=== PATIENT | female | born 1940 | race Caucasian/White ===

== ENCOUNTER → 2016-12-13 | Day surgery (SDC) | payer OTHER ==
[~2016-12-13] VITALS: Ht 154.9 cm; Wt 78.0 kg
[~2016-12-13] MED LIST: ALEN1TAB48 PO; ALPR0.5T3 PO; AMLO5TAB2 PO; ASPI-516 CHEW; CHLORHEXIDINE GLUCONATE 2 % 1 PACK (2 CLOTHS) TOPICAL PRN; CLON0.1T PO; FAMOTIDINE 20 MG/2 ML VIAL ONE; GLYCOPYRROLATE 1 MG/5 ML SYRINGE IV PUSH ONE; INSULIN HUMAN REGULAR 1,000 UNITS/10 ML VIAL SQ PRN; KETOROLAC TROMETHAMINE 60 MG/2 ML (IM) VIAL IM ONE; LACTATED RINGER'S 1000 ML IV PRN; LEVO100T5 PO; LISI-515 PO; METOPROLOL TARTRATE 25 MG TAB PO PRN; MIDAZOLAM HCL 2 MG/2 ML VIAL ONE; NEOSTIGMINE 3 MG/3 ML SYR IV ONE; ONDANSETRON HCL 4 MG/2 ML VIAL IV PUSH ONE; POVIDONE IODINE 5% (ANTISEPSIS KIT) 4 APPLICATIONS EACH NARE PRN; PROPOFOL 200 MG/20 ML AMP IV ONE; ROCURONIUM INJ 50 MG/5 ML SYRINGE IV PUSH ONE; SODIUM CHLORID 0.9% 500 ML IV PRN; fentaNYL CITRATE 250 MCG/5 ML AMP ONE
[2016-12-13 16:20] VITALS: BP 115/67; PULSE 87; RESP 16; TEMP 98.8; O2SAT 93
--- NOTE | 2017-01-01 11:10 | PD.OP ---
Operative Report Date of Surgery: Dec 13, 2016 Preoperative Diagnosis: (1) Abdominal pain, RLQ (2) Ovarian mass, right Postoperative Diagnosis: (1) Bilateral tubo-ovarian mass (2) Abdominal pain, RLQ Procedure: Laparoscopic bilateral salpingo-oophorectomy Frozen section on biopsy peritoneal biopsy Pelvic washings Anesthesia: JOSE C Surgeon: Adriana Mata Linen Room Worker(s): Marcos Cordova Surgeon: n/a Operation and Findings: Indications: This 76 y/o had imaging showing a RLQ mass done for RLQ pain. Mass is irregular and associated with RLQ pain. Patient requests removal, and after thorough discussion she agrees to bilateral salpingo-oophorectomy. Findings: At time of surgery the patient was discovered to have complex masses involving both ovaries. There were solid and cystic components to both sides. In addition there were small excrescences noted on the peritoneal surface of the abdominal cavity. The peritoneal lesions and a potion of the left ovarian mass were excised and sent for frozen section. Findings returned benign, and we then continued with BSO. Procedure: The patient was taken to the OR and administered general anesthesia with endotracheal intubation. She was the prepped and draped in yellow fin stirrups, and a uterine manipulator was inserted into the cervix. After re- gloving, a 10 mm incision was made into the umbilicus, and the abdomen was insufflated with 3 liters of CO2. The laparoscopic trochar was inserted and port placed. Under direct visualization and using transillumination to avoid major vessels, two 5 mm ports were placed in the lower quadrants. Using a probe and grasper, the findings above were noted. After collecting pelvic washings, a biopsy instrument was used to biopsy the peritoneal lesions seen as well as a piece of the left ovary. These were sent for frozen section. The report returned benign and we proceeded with excision of the tubes and ovaries. This was done on the right by lysing some very thick as well as filmy adhesions attaching the ovary to the uterus, colon and pelvic sidewall. The infundibulo- pelvic ligament was thereby skeletonized and then transected using the harmonic ACS device. The same procedure was accomplished on the left. The ovaries were removed from the pelvis intact using separate Endo-catch bags.Both ureters were identified and traced from the pelvic brim to the utero-cervical junction. The procedure being complete, the pneumoperitoneum was released, the ports removed. A 0 Vicryl suture in [id number] fashion was used to re- approximate the fascia at the umbilical site. All skin edges were then re- approximated with 4-0 Monocryl subcuticularly, and Dermabond was applied as a dressing. The manipulator was removed from the uterus, and the patient was transferred to the recovery room awake and breathing on her own. Sponge, needle and instrument counts were correct. Adriana Mata MD Jan 01, 2017 11:10
== END | disposition home or self-care (01) ==
LOC: PHSDC 08:44
PROVIDERS: ATTEND Obstetrics & Gynecology
DX: D27.1 Benign neoplasm of left ovary (principal); D27.0 Benign neoplasm of right ovary; N73.6 Female pelvic peritoneal adhesions (postinfective)
CPT/HCPCS: 00840; 58661; 88305; 88307; 88331; J1885; J2250; J2405; J2710; J3010; J7120